=== PATIENT | female | born 1970 | race Caucasian/White ===

== ENCOUNTER 2017-08-20 15:35 | Emergency (ER) | payer OTHER ==
[~2017-08-20] VITALS: Ht 172.7 cm; Wt 82.0 kg
[2017-08-20] MEDS ORDERED: DAPSONE25 MG PO (15:57)
[2017-08-20] MEDS ORDERED: NAPROSYN500 MG PO (18:12)
[2017-08-20 18:23] VITALS: BP 130/80
== END 2017-08-20 18:30 | disposition home or self-care (01) | DRG 558 ==
LOC: ED 15:35
DX: M75.21 Bicipital tendinitis, right shoulder (principal); X50.0XXA Overexertion from strenuous movement or load, initial encounter; Y93.89 Activity, other specified; Y92.89 Other specified places as the place of occurrence of the external cause